=== PATIENT | male | born 1965 | race African-American/Black ===

== ENCOUNTER 2020-11-01 10:41 | Emergency (ER) | payer BC | END 2020-11-01 11:38 | disposition home or self-care (01) | LOC: CSHERS 10:41 | DX: K04.7 Periapical abscess without sinus (principal); E11.9 Type 2 diabetes mellitus without complications; K21.9 Gastro-esophageal reflux disease without esophagitis; I10 Essential (primary) hypertension; Z79.84 Long term (current) use of oral hypoglycemic drugs; Z79.899 Other long term (current) drug therapy | CPT/HCPCS: 99283 ==